=== PATIENT | male | born 1995 | race Two or more races ===

== ENCOUNTER 2020-11-08 21:30 | Emergency (ER) | payer MEDICAID ==
[~2020-11-08] VITALS: Ht 185.4 cm; Wt 116.1 kg
[2020-11-08] MEDS ORDERED: TRAM50TA2 PO (22:06)
[2020-11-08] MEDS ORDERED: AMOX-430 PO (22:06)
[2020-11-08] MEDS ORDERED: IBUP-1955 PO (22:06)
--- NOTE | 2020-11-08 22:17 | NUR ---
[employer] AT BEDSIDE
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
[2020-11-08] MEDS ORDERED: TRAMADOL HCL 50 MG TABLET ONE (22:23)
[2020-11-08] MEDS ORDERED: AMOX/CLAVULANATE 875 MG TABLET ONE (22:24)
[2020-11-08] MEDS ORDERED: TDAP [DIPH/PERTUSSIS/TET] 0.5 ML VIAL IM ONE ×2 (22:24→22:30)
[2020-11-08] MEDS ORDERED: AMOX/CLAVULANATE 875 MG TABLET PO ONE (22:30)
[2020-11-08] MEDS ORDERED: TRAMADOL HCL 50 MG TABLET PO ONE (22:30)
--- NOTE | 2020-11-08 22:38 | NUR ---
Patient discharged to home in stable condition. Written and verbal after care instructions given. Patient verbalizes understanding of instruction. Pt ambulatory with a steady gait. pt is still talking to [employer] officers at this time.
[2020-11-08 22:47] VITALS: BP 123/88
== END 2020-11-08 22:47 | disposition home or self-care (01) ==
LOC: ER 21:33
DX: S01.512A Laceration without foreign body of oral cavity, initial encounter (principal); S09.8XXA Other specified injuries of head, initial encounter; S41.152A Open bite of left upper arm, initial encounter; S41.151A Open bite of right upper arm, initial encounter; Y04.1XXA Assault by human bite, initial encounter; Y93.89 Activity, other specified; Y92.89 Other specified places as the place of occurrence of the external cause; Y99.8 Other external cause status
CPT/HCPCS: 90715